=== PATIENT | male | born 1985 ===

== ENCOUNTER → 2021-05-22 | Emergency (ER) | payer SELFPAY ==
[~2021-05-22] VITALS: Ht 185.4 cm; Wt 104.3 kg
[~2021-05-22] MED LIST: ACET-2605 PO; ACETAMINOPHEN ES 500 MG TABLET ONE; ACETAMINOPHEN ES 500 MG TABLET PO ONE; CYCL5TAB PO; CYCLOBENZAPRINE 10 MG TABLET ONE; CYCLOBENZAPRINE 10 MG TABLET PO ONE; IBUP-1957 PO; KETOROLAC TROMETHAMINE INJ 30 MG/ML VIAL IM ONE; KETOROLAC TROMETHAMINE INJ 30 MG/ML VIAL ONE; TRAM50TA2 PO; TRAMADOL HCL 50 MG TABLET ONE; TRAMADOL HCL 50 MG TABLET PO ONE
--- NOTE | 2021-05-22 10:20 | NUR ---
TO ER BED 12 AWAITING MD CUMMINS
--- NOTE | 2021-05-22 10:22 | NUR ---
BIB [facility] 76,CHRONIC BACK PAIN GOT WORSE AFTER GETTING OUT OF HIS CAR. VITALS WITHIN NORMAL LIMITS. BREATHING EVEN AND UNLABORED.
--- NOTE | 2021-05-22 10:46 | NUR ---
PT TAKEN TO CT
--- NOTE | 2021-05-22 10:56 | NUR ---
PT RETURNED FROM CT
[2021-05-22 11:30] LABS: BASOPHILS % (AUTO) 0.2 % (0.0-2.0); EOSINOPHILS % (AUTO) 0.2 % (0.0-6.0); HEMATOCRIT 44 % (39-51); HEMOGLOBIN 15.2 g/dL (13.5-17.5); LYMPHOCYTES # (AUTO) 0.9 K/uL (0.8-4.8); MEAN CORPUSCULAR HGB CONC 35 g/dl (31.0-36.0); MEAN CORPUSCULAR VOLUME 88 fL (80-96); MONOCYTES # (AUTO) 0.7 K/uL (0.1-1.30); MONOCYTES % (AUTO) 4.9 % (2.0-12.0); NEUTROPHILS # (AUTO) 11.7 K/uL (1.8-8.9); NEUTROPHILS % (AUTO) 87.7 % (43.0-81.0); PLATELET COUNT (AUTO) 262 K/uL (150-450); RED BLOOD CELL COUNT(AUTO) 4.97 MIL/uL (4.5-6.0); WHITE BLOOD COUNT (AUTO) 13.3 K/uL (4.3-11.0)
[2021-05-22 12:07] LABS: CARBON DIOXIDE 27 mmol/L (21-32); CHLORIDE 104 mmol/L (98-107); CREATININE 1.3 mg/dL (0.6-1.3); GLUCOSE 133 mg/dL (74-106); SODIUM SERUM 137 mmol/L (136-145); UREA NITROGEN, BLOOD 23 mg/dL (7-18)
--- NOTE | 2021-05-22 14:03 | NUR ---
Patient discharged to home in stable condition.RX, Written and verbal after care instructions given. Patient verbalizes understanding of instruction.
[2021-05-22 14:04] VITALS: BP 122/71
== END | disposition home or self-care (01) ==
LOC: ER 10:25
DX: M54.50 Low back pain, unspecified (principal); G89.29 Other chronic pain
CPT/HCPCS: 36415; 72131; 80048; 84484; 85025; 93005; 96372; 99285; J1885